=== PATIENT | female | born 1995 | race African-American/Black ===

== ENCOUNTER 2022-02-17 08:22 | Emergency (ER) | payer SELFPAY ==
[2022-02-17 16:16] VITALS: BP 116/75; PULSE 70
== END 2022-02-17 16:16 | disposition home or self-care (01) ==
LOC: JD.ED 08:22 → SUPCPDRO 08:22 → JD.ED 16:16
DX: O20.0 Threatened abortion (principal); Z79.899 Other long term (current) drug therapy; Z3A.01 Less than 8 weeks gestation of pregnancy
CPT/HCPCS: 36415; 76817; 76817-26; 80053; 81001; 85025; 86850; 86900; 86901; 87086; 99284